=== PATIENT | female | born 1990 | race African-American/Black ===

== ENCOUNTER 2017-05-10 16:52 | Emergency (ER) | payer MEDICAID ==
[~2017-05-10] VITALS: Ht 165.1 cm; Wt 67.0 kg
[2017-05-10] MEDS ORDERED: SODIUM CHLORIDE 0.9% 1,000 ML IV ONE (21:31)
[2017-05-10 21:40] LABS: CLARITY URINE CLEAR (CLEAR); COLOR URINE YELLOW (YELLOW); KETONES URINE TRACE (NEGATIVE); LEUKOCYTE ESTERASE URINE TRACE (NEGATIVE); NITRITE URINE NEGATIVE (NEGATIVE); OCCULT BLOOD URINE 3+ (NEGATIVE); PROTEIN URINE TRACE (NEGATIVE); SPECIFIC GRAVITY URINE 1.029 (1.005-1.030); UROBILINOGEN URINE 0.2 E.U./dL (0.2-1.0)
[2017-05-10] MEDS ORDERED: KETOROLAC 30MG/ML VIAL IV ONE (21:45)
[2017-05-10 21:48] LABS: BASOPHILS % 1.3 % (0.0-2.0); HEMATOCRIT. 34.2 % (36.0-48.0); HEMOGLOBIN. 10.9 g/dL (12.0-16.0); LYMPHOCYTES % 37.4 % (20.0-50.0); MEAN CORPUSCULAR HEMOGLOBIN 24.1 pg (28.0-32.0); MEAN CORPUSCULAR VOLUME 75.9 fL (81.0-99.0); MEAN PLATELET VOLUME 8.3 fl (7.4-10.4); MONOCYTES % 10.6 % (2.0-8.0); NEUTROPHILS % 49.7 % (40.0-76.0); PLATELET 296 x1000/uL (130-400); RED BLOOD CELL COUNT 4.51 mill/uL (4.2-5.4); RED CELL DISTRIBUTION WIDTH 16.6 % (11.6-14.6)
[2017-05-10 21:50] LABS: *AMPHETAMINES SCREEN URINE NEGATIVE (NEGATIVE); *BARBITURATES SCREEN URINE NEGATIVE (NEGATIVE); *BENZODIAZEPINES SCREEN URINE NEGATIVE (NEGATIVE); *COCAINE SCREEN URINE NEGATIVE (NEGATIVE); CANNABINOID URINE SCREEN NEGATIVE (NEGATIVE); METHADONE URINE SCREEN NEGATIVE (NEGATIVE); PHENCYCLIDINE URINE SCREEN NEGATIVE (NEGATIVE)
[2017-05-10 21:56] LABS: OPIATES URINE SCREEN PRESUMTIVE POSITIVE (NEGATIVE)
[2017-05-10 22:03] LABS: CARBON DIOXIDE 27 mEq/L (21-32); CHLORIDE 105 mEq/L (98-107)
[2017-05-10 22:10] LABS: HCG SCREEN NEGATIVE
[2017-05-11 00:25] VITALS: BP 140/120
== END 2017-05-11 01:01 | disposition home or self-care (01) ==
LOC: ER 18:02
DX: N94.6 Dysmenorrhea, unspecified (principal)
CPT/HCPCS: 36415; 80053; 80305; 81001; 84703; 85025; 96361; 96374; 99284; J1885; J7030; Z7610

== ENCOUNTER 2018-04-13 14:01 | Emergency (ER) | payer MEDICAID ==
[~2018-04-13] VITALS: Ht 165.1 cm; Wt 70.0 kg
[2018-04-13 18:37] VITALS: BP 112/71
== END 2018-04-13 18:38 | disposition home or self-care (01) ==
LOC: ER 14:01
DX: H66.92 Otitis media, unspecified, left ear (principal); J06.9 Acute upper respiratory infection, unspecified
CPT/HCPCS: 99283